=== PATIENT | female | born 1980 | race Caucasian/White ===

== ENCOUNTER → 2016-06-16 | Outpatient (CLI) | payer MEDICAID ==
[~2016-06-16] MED LIST: FURO-92 PO; LEVO200T PO
== END | disposition home or self-care (01) ==
LOC: CFH 12:04
PROVIDERS: ATTEND Physician Assistant Surgical
DX: M41.84 Other forms of scoliosis, thoracic region (principal); M47.896 Other spondylosis, lumbar region; M41.86 Other forms of scoliosis, lumbar region
CPT/HCPCS: 72072; 72110